=== PATIENT | male | born 1975 | race Caucasian/White ===

== ENCOUNTER 2020-11-01 16:51 | Emergency (ER) | payer OTHER, SELFPAY ==
--- NOTE | ~2020-11-01 | XR_ITS ---
EXAMINATION: XR chest 2V DATE: 11/01/2020 18:18 INDICATION: Cough. Wheezing. TECHNIQUE: Frontal and lateral views of the chest were obtained on 3 radiographs. COMPARISON: None. FINDINGS: The chest demonstrates clear lungs without pneumonia, pleural effusion, or pneumothorax. Th e heart size is normal. IMPRESSION: 1. No acute cardiopulmonary disease. Reviewed, dictated and finalized at location A.
[2020-11-01 17:02] VITALS: BP 151/93; PULSE 105; RESP 14; TEMP 37.4; O2SAT 97
[2020-11-01 17:14] VITALS: BP 151/93; PULSE 105; RESP 14; TEMP 37.4; O2SAT 97
--- NOTE | 2020-11-01 17:53 | ED.URI ---
HPI - URI/Sore Throat General Chief Complaint: Upper Respiratory Infection Stated Complaint: Possible Covid Time Seen by Provider: 11/01/20 17:53 Source: patient, RN notes reviewed and old records reviewed Mode of arrival: ambulatory Limitations: no limitations History of Present Illness HPI Narrative: 45 year old male who presents to [facility] care with complaints of nasal congestion, runny nose with sinus pressure, wheezing and persistent cough, ear pressure and mild sore throat for the past for the past week. He reports that he was seen at [facility] 3 days ago and diagnosed with bronchitis and told to take Mucinex and given Rx for inhaler which he has used with no improvement in symptoms. Patient report that he had rapid COVID test at [facility] 4 days ago which was negative.Patient reports that cough continues despite treatment with some SOB noted at times. MD elicited complaint: cough, rhinorrhea and nasal congestion Pertinent past history: seasonal allergies, immunosuppression (on methotrexate for RA) and other (tobacco abuse) Consistency: progressively worsening Related Data Home Medications Medication Instructions Recorded Confirmed albuterol sulfate [ProAir HFA] 2 puff INHALATION QID 11/01/20 11/01/20 amlodipine 5 mg PO DAILY 11/01/20 11/01/20 folic acid 1 mg PO DAILY 11/01/20 11/01/20 hydroxychloroquine 200 mg PO BID 11/01/20 11/01/20 lisinopril 10 mg PO DAILY 11/01/20 11/01/20 methotrexate sodium [Methotrexate 2.5 mg PO WEEKLY 11/01/20 11/01/20 (Anti-Rheumatic)] Allergies Allergy/AdvReac Type Severity Reaction Status Date / Time No Known Allergies Allergy Verified 11/01/20 17:12 Review of Systems Review of Systems: CONSTITUTIONAL: some low grade fevers highest 100.4F, chills, or sweats. EYES: Denies visual changes, redness, or discharge. ENT: Positive for rhinorrhea, congestion, sore throat, or otalgia. CARDIOVASCULAR: Denies chest pain, palpitations, or edema, denies any chest pressure RESPIRATORY: Positive for cough or dyspnea. GASTROINTESTINAL: Denies abdominal pain, nausea, vomiting, or diarrhea. GENITOURINARY: Denies dysuria or hematuria. SKIN: Denies rash or itching. MUSCULOSKELETAL: Denies back pain, joint pain, or myalgia. NEUROLOGIC: Denies headache, numbness, or weakness. PSYCHIATRIC: Denies anxiety or depression. All systems reviewed & are unremarkable except as noted in HPI and below PMFSH Past Medical History Medical History (Updated 11/02/20 @ 00:01 by Concepcion Vergara) Hypertension Rheumatoid arthritis Surgical History Surgical History (Updated 11/05/20 @ 10:49 by Beth Rosa NP) No history of previous surgery Family History Family History (Updated 11/05/20 @ 10:50 by Beth Rosa NP) Other No significant family history Social History Social History (Updated 11/05/20 @ 10:48 by Beth Rosa NP) Smoking packs per day: 1 Smoking cigarettes per day: 20.0 Years smoked: 15 Smoking pack-years: 15.00 Smoking status: Current every day smoker Alcohol intake: current Alcohol use details: occ social Substance use: never Living arrangements: with family Gender identity (if verbalized by the patient): Male Comments At time of signature, agree with nursing past medical, surgical, social and family history. There is no relevant family history pertinent to the presenting complaint Exam Narrative: GENERAL: Well-appearing, well-nourished, and in no acute distress. HEAD: Normocephalic, atraumatic. EYES: PERRLA and EOMI. ENT: Nares red with clear rhinorrhea no epistaxis. Mucous membranes moist.TM's normal with good light reflex, throat with some redness, no lesions or exudates,no tonsil enlargement, post nasal drainage. NECK: Supple. no lymphadenopathy CHEST: Scattered wheezes on auscultation. persistent cough mostly dry with occasional yellow mucous,No acute respiratory distress.SAO2 97% on room air HEART: Regular rate and rhythm. No murmur heard. Normal
== END 2020-11-01 18:40 | disposition home or self-care (01) ==
PROVIDERS: Emergency Provider Registered Nurse; PCP Nurse Practitioner Family
DX: J40 Bronchitis, not specified as acute or chronic (principal); I10 Essential (primary) hypertension; M06.9 Rheumatoid arthritis, unspecified
CPT/HCPCS: 71046; 99213; G0463